=== PATIENT | male | born 1935 | race Caucasian/White ===

== ENCOUNTER → 2016-10-24 | Outpatient (CLI) | payer OTHER ==
[~2016-10-24] MED LIST: ASPI81TA21 PO; ATOR80TA PO; CLC100X PO; FINA5TAB PO; NITR0.4S UT; TERA5CAP PO; WARF4TAB8 PO
[2016-10-24 12:25] LABS: BASO % 0.7 %; BASO ABS # 0.04 K/uL (0-0.2); COMPLETE YES; EOS % 9.6 %; HEMATOCRIT 44.1 % (42-52); IG% 0.2 %; LYMPH % 23.3 %; LYMPH ABS # 1.43 K/uL (1.2-3.4); MEAN CELL VOLUME 88.7 fL (80-100); MEAN CORPUSCULAR HEMOGLOBIN 30.2 pg (25-34); MEAN PLATELET VOLUME 10.3 fL (7.4-10.4); MONO % 10.1 %; NEUT % 56.1 %; PLATELET COUNT 157 K/uL (130-400); RED BLOOD COUNT 4.97 M/uL (4.7-6.1); WHITE BLOOD COUNT 6.15 K/uL (4.8-10.8)
[2016-10-24 12:53] LABS: ALT/SGPT 49 U/L (12-78); BLOOD UREA NITROGEN 24 mg/dl (7-18); BUN/CREATININE RATIO 19.6 (10-20); CALCIUM 8.9 mg/dl (8.5-10.1); CARBON DIOXIDE 28 mmol/L (21-32); CHLORIDE 110 mmol/L (98-107); GLUCOSE 98 mg/dl (70-99); POTASSIUM 4.3 mmol/L (3.5-5.1); SODIUM 145 mmol/L (136-145)
[2016-10-24 12:55] LABS: ALB/GLOB RATIO 1.1 (0.9-2); ALKALINE PHOSPHATASE 95 U/L (45-117); AST/SGOT 30 U/L (15-37)
--- NOTE | 2016-10-28 13:08 | CODING QUERY MEDICAL NECESSITY ---
SUPPORTING DIAGNOSIS NEEDED A supporting diagnosis is required for the test/procedure performed on this patient in order for us to be reimbursed by the patient's insurance. Please provide a supporting diagnosis for the following test/procedure listed below next to the test name along with your signature. *If there is no additional diagnosis for this patient that would support the following test/procedure please document that below next to the test/procedure. Test(s)/Procedure(s) that require a supporting diagnosis: DOS 10/24 * Vitamin D DIAGNOSIS: Provider Signature: Date: Thank you Philly [facility] Once completed, please kindly fax back to [phone] For questions please call [phone]
== END | disposition home or self-care (01) ==
LOC: C.LABPVFM 07:55
PROVIDERS: ATTEND Family Medicine
DX: R79.9 Abnormal finding of blood chemistry, unspecified (principal); Z00.00 Encounter for general adult medical examination without abnormal findings; E55.9 Vitamin D deficiency, unspecified

== ENCOUNTER → 2016-11-12 | Outpatient (CLI) | payer OTHER ==
--- NOTE | 2016-11-12 08:14 | DIAGNOSTIC IMAGING REPORT ---
FUSION CT SINUSES W/O CLINICAL HISTORY: Nasal polyp. Nasal obstruction. COMPARISON STUDY: No previous studies for comparison. FINDINGS: The mastoid air cells are symmetrically aerated. The middle ear cavities appear symmetrically aerated. There is minimal mucosal disease within the sphenoid. The right maxillary sinus is nearly completely opacified. There is moderate mucosal thickening within the left maxillary sinus. Multiple teeth when air cells demonstrate mucosal thickening. There is moderately extensive mucosal disease in the left frontal sinus. There is hypertrophy of the nasal turbinates. There are bilateral nasal polyps. 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 IMPRESSION: 1. Pansinus disease 2. Bilateral nasal polyps 3. 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 Electronically signed by: Davis Mishra M.D. 11/12/2016 8:12 AM Dictated Date/Time: 11/12/2016 8:08 AM
== END | disposition home or self-care (01) ==
LOC: C.CTS 07:51
PROVIDERS: ATTEND Surgery
DX: J33.9 Nasal polyp, unspecified (principal); J32.4 Chronic pansinusitis

== ENCOUNTER → 2017-05-12 | Outpatient (CLI) | payer OTHER ==
[2017-05-12 13:03] LABS: ALT/SGPT 51 U/L (12-78); BLOOD UREA NITROGEN 22 mg/dl (7-18); BUN/CREATININE RATIO 18.1 (10-20); CALCIUM 8.6 mg/dl (8.5-10.1); CARBON DIOXIDE 27 mmol/L (21-32); CHLORIDE 112 mmol/L (98-107); CHOLESTEROL 112 mg/dl (0-200); GLUCOSE 92 mg/dl (70-99); POTASSIUM 4.2 mmol/L (3.5-5.1); SODIUM 144 mmol/L (136-145)
[2017-05-12 13:07] LABS: ALB/GLOB RATIO 1.1 (0.9-2); ALKALINE PHOSPHATASE 92 U/L (45-117); AST/SGOT 33 U/L (15-37); CHOLESTEROL/HDL RATIO 2.7; HDL CHOLESTEROL 42 mg/dl; LDL CHOLESTEROL CALCULATED 59 mg/dl; TRIGLYCERIDES 53 mg/dl (0-150); VERY LOW DENSITY LIPOPROT CALC 11 mg/dl
== END | disposition home or self-care (01) ==
LOC: C.LABPVFM 07:52
PROVIDERS: ATTEND Family Medicine
DX: E78.5 Hyperlipidemia, unspecified (principal); J67.0 Farmer's lung; E80.6 Other disorders of bilirubin metabolism; E55.9 Vitamin D deficiency, unspecified

== ENCOUNTER → 2017-11-24 | Outpatient (CLI) | payer OTHER ==
[2017-11-24 13:15] LABS: ALBUMIN 3.4 gm/dl (3.4-5.0); ALT/SGPT 51 U/L (12-78); AST/SGOT 31 U/L (15-37); BLOOD UREA NITROGEN 20 mg/dl (7-18); CALCIUM 8.7 mg/dl (8.5-10.1); CARBON DIOXIDE 29 mmol/L (21-32); CREATININE 1.28 mg/dl (0.60-1.40); GLUCOSE 104 mg/dl (70-99); POTASSIUM 3.9 mmol/L (3.5-5.1); SODIUM 141 mmol/L (136-145)
[2017-11-24 13:18] LABS: ALKALINE PHOSPHATASE 87 U/L (45-117); TOTAL PROTEIN 6.5 gm/dl (6.4-8.2)
== END | disposition home or self-care (01) ==
LOC: C.LABPVFM 07:53
PROVIDERS: ATTEND Family Medicine
DX: E78.5 Hyperlipidemia, unspecified (principal); J67.0 Farmer's lung; I25.10 Atherosclerotic heart disease of native coronary artery without angina pectoris; E80.6 Other disorders of bilirubin metabolism; J33.9 Nasal polyp, unspecified; E55.9 Vitamin D deficiency, unspecified